=== PATIENT | female | born 1970 | race Caucasian/White ===

== ENCOUNTER 2021-10-31 12:55 | Day surgery (SDC) | payer MEDICAID ==
[2021-10-29 14:20] LABS: COVID AG,FIA SOURCE NASAL SWAB
[~2021-10-31] VITALS: Ht 160 cm; Wt 76.4 kg
[~2021-10-31 12:55] MED LIST: CHL25 PO; SODIUM CHLORIDE 0.9% 1,000 ML IV ONE; SODIUM CHLORIDE 0.9% 1,000 ML ONE
[2021-10-31] MEDS ORDERED: PROPOFOL 1% 20 ML VIAL IVP ONE (12:56)
[2021-10-31] MEDS ORDERED: LIDOCAINE/PF 2% 5 ML VIAL IM ONE (12:56)
[2021-10-31] MEDS ORDERED: FentaNYL CITRATE PF 100 MCG/2 ML VIAL ONE (14:24)
[2021-10-31] MEDS ORDERED: MIDAZOLAM HCL 5 MG/ML VIAL ONE (14:25)
== END 2021-10-31 16:10 | disposition home or self-care (01) ==
LOC: SURGERY 12:55
PROVIDERS: ATTEND Internal Medicine Gastroenterology
DX: R19.5 Other fecal abnormalities (principal); K64.8 Other hemorrhoids; K44.9 Diaphragmatic hernia without obstruction or gangrene; K29.70 Gastritis, unspecified, without bleeding; I10 Essential (primary) hypertension; Z79.899 Other long term (current) drug therapy
CPT/HCPCS: 87426; 45378; 43239; C9803; C1769; J2704; J3010; J3490; J2250; J7030